=== PATIENT | male | born 2000 | race Two or more races ===

== ENCOUNTER 2020-01-04 20:23 | Emergency (ER) | payer OTHER, MEDICAID ==
[~2020-01-04] VITALS: Ht 177.8 cm; Wt 158.8 kg
[2020-01-04 21:38] VITALS: BP 149/81
[2020-01-04] MEDS ORDERED: HYDROcodone-ACET 10/325MG TAB PO ONE (23:30)
== END 2020-01-05 00:10 | disposition home or self-care (01) ==
LOC: ER 20:24
DX: S16.1XXA Strain of muscle, fascia and tendon at neck level, initial encounter (principal); V49.9XXA Car occupant (driver) (passenger) injured in unspecified traffic accident, initial encounter; Y93.89 Activity, other specified; Y92.89 Other specified places as the place of occurrence of the external cause; Y99.8 Other external cause status
CPT/HCPCS: 70450; 72125